=== PATIENT | female | born 1985 | race Two or more races ===

== ENCOUNTER 2017-10-23 10:50 | Emergency (ER) | payer OTHER ==
[~2017-10-23] VITALS: Ht 157.5 cm; Wt 79.0 kg
[2017-10-23 10:58] VITALS: BP 109/87
[2017-10-23] MEDS ORDERED: PREN1TAB28 PO (11:13)
[2017-10-23 11:55] LABS: BASOPHILS # (AUTO) 0.02 x10^3/uL (0-0.1); BASOPHILS % (AUTO) 0 % (0-1); EOSINOPHILS # (AUTO) 0.04 x10^3/uL (0-0.4); EOSINOPHILS % (AUTO) 1 % (1-7); LYMPHOCYTES # (AUTO) 1.67 x10^3/uL (1-3.4); LYMPHOCYTES % (AUTO) 20 % (22-44); MD NO; MEAN CORPUSCULAR HEMOGLOBIN 31.3 pg (27.0-34.8); MEAN CORPUSCULAR HGB CONC 34.3 g/dL (32.4-35.8); MEAN CORPUSCULAR VOLUME 91.3 fL (80-100); MEAN PLATELET VOLUME 8.2 fL (7.4-10.4); MONOCYTES # (AUTO) 0.63 x10^3/uL (0.2-0.8); MONOCYTES % (AUTO) 8 % (2-9); NEUTROPHILS # (AUTO) 6.03 x10^3/uL (1.8-6.8); NEUTROPHILS % (AUTO) 72 % (42-75); PLATELET COUNT 279 x10^3/uL (130-400); RED CELL DISTRIBUTION WIDTH 13.1 % (9.6-15.2)
[2017-10-23 12:00] LABS: ALBUMIN 3.2 g/dL (3.4-5.0); ANION GAP 10 mmol/L (5-15); CALCIUM 8.6 mg/dL (8.5-10.1); CHLORIDE 106 mmol/L (98-107); CREATININE 0.41 mg/dL (0.55-1.02)
== END 2017-10-23 13:32 | disposition home or self-care (01) ==
LOC: ED 12:00
DX: O20.0 Threatened abortion (principal); Z3A.13 13 weeks gestation of pregnancy
CPT/HCPCS: 36415; 76801; 80048; 82040; 84702; 85025; 86901; 99285

== ENCOUNTER 2018-04-29 07:46 | Inpatient (IN) | payer BC, OTHER ==
[~2018-04-29] VITALS: Ht 157.5 cm; Wt 89.5 kg
[~2018-04-29 07:46] MED LIST: PREN1TAB28 PO
[2018-04-29] MEDS ORDERED: D5%-LACTATED RINGERS 1,000 ML IV SCH (09:26)
[2018-04-29] MEDS ORDERED: OXYTOCIN 30U/ 0.9% NaCL 500ML 500 ML IV ONE (09:26)
[2018-04-29] MEDS ORDERED: OXYTOCIN 30U/ 0.9% NaCL 500ML 500 ML IV PRN (09:26)
[2018-04-29] MEDS ORDERED: TERBUTALINE 1 MG/ML, 1ML IVPush PRN (09:30)
[2018-04-29] MEDS ORDERED: SODIUM CITRATE/CITRIC ACID 30 ML UDC PO PRN (09:30)
[2018-04-29] MEDS ORDERED: FENTANYL PF 100 MCG/2ML IV PRN (09:30)
[2018-04-29] MEDS ORDERED: METOCLOPRAMIDE 5 MG/ML, 2ML IVPush PRN (09:30)
[2018-04-29] MEDS ORDERED: ONDANSETRON 2MG/ML, 2ML IVPush PRN (09:30)
[2018-04-29] MEDS: LACTATED RINGERS 1,000 ML IV SCH ×2 (09:50→14:22)
[2018-04-29] MEDS ORDERED: NEWBORN KIT ONE (09:54)
[2018-04-29] MEDS ORDERED: MISOPROSTOL 200 MCG TABLET ONE (09:54)
[2018-04-29] MEDS ORDERED: OXYTOCIN 30U/ 0.9% NaCL 500ML 500 ML ONE (09:54)
[2018-04-29] MEDS ORDERED: LIDOCAINE 1%, 20ML ONE ×2 (09:54)
[2018-04-29] MEDS ORDERED: PLEASE ENTER HEIGHT AND WEIGHT MC SCH (10:00)
[2018-04-29 10:12] LABS: BASOPHILS # (AUTO) 0.02 x10^3/uL (0-0.1); BASOPHILS % (AUTO) 0 % (0-1); EOSINOPHILS # (AUTO) 0.04 x10^3/uL (0-0.4); EOSINOPHILS % (AUTO) 1 % (1-7); LYMPHOCYTES # (AUTO) 1.67 x10^3/uL (1-3.4); LYMPHOCYTES % (AUTO) 23 % (22-44); MD NO; MEAN CORPUSCULAR HEMOGLOBIN 28.8 pg (27.0-34.8); MEAN CORPUSCULAR HGB CONC 32.4 g/dL (32.4-35.8); MEAN PLATELET VOLUME 8.6 fL (7.4-10.4); MONOCYTES # (AUTO) 0.65 x10^3/uL (0.2-0.8); MONOCYTES % (AUTO) 9 % (2-9); NEUTROPHILS # (AUTO) 5.05 x10^3/uL (1.8-6.8); NEUTROPHILS % (AUTO) 68 % (42-75); PLATELET COUNT 246 x10^3/uL (130-400); RED BLOOD COUNT 4.15 x10^6/uL (3.82-5.3); RED CELL DISTRIBUTION WIDTH 15.5 % (9.6-15.2)
[2018-04-29] MEDS ORDERED: ONDANSETRON 2MG/ML, 2ML ONE (12:29)
[2018-04-29] MEDS ORDERED: FENTANYL PF 100 MCG/2ML ONE ×3 (12:29→16:28)
[2018-04-29] MEDS: FENTANYL PF 100 MCG/2ML IVPush PRN ×3 (12:31→16:30)
[2018-04-29] MEDS ORDERED: FENTANYL/BUPIV./NS/PF 250 ML EPIDCONT SCH (14:02)
[2018-04-29] MEDS ORDERED: FENTANYL PF 500 MCG, BUPIVACAINE/PF 0.5%, 30ML 62.5 ML in SODIUM CHLORIDE 0.9% 177.5 ML EPIDCONT SCH (14:30)
[2018-04-29] MEDS: OXYTOCIN 30U/ 0.9% NaCL 500ML 500 ML IV SCH (16:44)
[2018-04-29] MEDS ORDERED: CARBOPROST TROMETHAMINE 250 MCG/ML, 1ML IM PRN (18:00)
[2018-04-29] MEDS ORDERED: OXYcodone/APAP 5/325MG TABLET PO PRN (18:00)
[2018-04-29] MEDS ORDERED: METHYLERGONOVINE 0.2 MG/ML IM PRN (18:00)
[2018-04-29] MEDS ORDERED: ONDANSETRON 2MG/ML, 2ML IV PRN (18:00)
[2018-04-29] MEDS ORDERED: MISOPROSTOL 200 MCG TABLET PR PRN (18:00)
[2018-04-29] MEDS ORDERED: METOCLOPRAMIDE 5 MG/ML, 2ML IV PRN (18:00)
[2018-04-29] MEDS ORDERED: ACETAMINOPHEN 325 MG TABLET PO PRN (18:00)
[2018-04-29] MEDS ORDERED: IBUPROFEN 600 MG TABLET ONE (18:18)
[2018-04-29] MEDS: IBUPROFEN 600 MG TABLET PO PRN (18:20)
[2018-04-29 18:50] VITALS: BP 105/65
[2018-04-29] MEDS: OXYcodone/APAP 5/325MG TABLET PO PRN (19:46)
[2018-04-29] MEDS: DOCUSATE 100 MG CAPSULE PO PRN (19:46)
[2018-04-29 20:25] VITALS: BP 102/62
[2018-04-29 23:55] VITALS: BP 91/55
[2018-04-30] MEDS: IBUPROFEN 600 MG TABLET PO PRN ×3 (03:17→17:17)
[2018-04-30] MEDS: OXYcodone/APAP 5/325MG TABLET PO PRN ×3 (03:17→17:17)
[2018-04-30] MEDS: OXYTOCIN 30U/ 0.9% NaCL 500ML 500 ML IV SCH ×3 (03:32→23:32)
[2018-04-30 04:01] VITALS: BP 99/62
[2018-04-30 06:00] LABS: BASOPHILS # (AUTO) 0.03 x10^3/uL (0-0.1); BASOPHILS % (AUTO) 0 % (0-1); EOSINOPHILS # (AUTO) 0.05 x10^3/uL (0-0.4); EOSINOPHILS % (AUTO) 1 % (1-7); LYMPHOCYTES # (AUTO) 1.79 x10^3/uL (1-3.4); LYMPHOCYTES % (AUTO) 18 % (22-44); MD NO; MEAN CORPUSCULAR HEMOGLOBIN 29.8 pg (27.0-34.8); MEAN CORPUSCULAR HGB CONC 33.6 g/dL (32.4-35.8); MEAN CORPUSCULAR VOLUME 88.7 fL (80-100); MEAN PLATELET VOLUME 7.9 fL (7.4-10.4); MONOCYTES # (AUTO) 0.96 x10^3/uL (0.2-0.8); MONOCYTES % (AUTO) 10 % (2-9); NEUTROPHILS # (AUTO) 7.06 x10^3/uL (1.8-6.8); NEUTROPHILS % (AUTO) 71 % (42-75); PLATELET COUNT 235 x10^3/uL (130-400); RED BLOOD COUNT 3.71 x10^6/uL (3.82-5.3); RED CELL DISTRIBUTION WIDTH 15.7 % (9.6-15.2)
[2018-04-30 07:00] VITALS: BP 100/60
[2018-04-30] MEDS: PRENATAL VIT/IRON/FA 1 EACH TABLET PO SCH (07:43)
[2018-04-30] MEDS: DOCUSATE 100 MG CAPSULE PO PRN (07:43)
[2018-04-30] MEDS ORDERED: IBUP-1222 PO (08:04)
[2018-04-30 11:30] VITALS: BP 98/61
[2018-04-30 20:00] VITALS: BP 96/64
[2018-05-01] MEDS: IBUPROFEN 600 MG TABLET PO PRN ×3 (00:54→15:49)
[2018-05-01] MEDS: OXYcodone/APAP 5/325MG TABLET PO PRN ×3 (00:54→15:49)
[2018-05-01 07:52] VITALS: BP 106/70
[2018-05-01] MEDS: PRENATAL VIT/IRON/FA 1 EACH TABLET PO SCH (09:00)
== END 2018-05-01 17:12 | disposition home or self-care (01) | DRG 807 ==
LOC: LDIP 09:14 → 2NW 18:26
PROVIDERS: ADMIT Student in an Organized Health Care Education/Training Program; ATTEND Student in an Organized Health Care Education/Training Program
PROC: 10907ZC Drainage of Amniotic Fluid, Therapeutic from Products of Conception, Via Natural or Artificial Opening (ICD-10-PCS; principal; 2018-04-29)
PROC: 10E0XZZ Delivery of Products of Conception, External Approach (ICD-10-PCS; 2018-04-29)
PROC: 3E033VJ Introduction of Other Hormone into Peripheral Vein, Percutaneous Approach (ICD-10-PCS; 2018-04-29)
DX: O69.81X0 Labor and delivery complicated by cord around neck, without compression, not applicable or unspecified (principal); Z37.0 Single live birth; Z3A.39 39 weeks gestation of pregnancy
CPT/HCPCS: 36415; J7121; 85025; 86850; 86900; G0378; J2405; J3010; J2590; J7120